=== PATIENT | female | born 1995 | race Caucasian/White ===

== ENCOUNTER 2018-10-10 17:46 | Emergency (ER) | payer OTHER ==
[2018-10-10] MEDS ORDERED: Acetaminophen 325 MG TAB ONE (18:28)
== END 2018-10-10 18:47 | disposition home or self-care (01) ==
LOC: ERS 17:46
DX: J02.9 Acute pharyngitis, unspecified (principal); J42 Unspecified chronic bronchitis
CPT/HCPCS: 87081; 87430; 99283